=== PATIENT | male | born 1985 ===

== ENCOUNTER → 2024-12-11 09:08 | Outpatient (REF) | payer OTHER, SELFPAY | LOC: HWRCS 09:08 | PROVIDERS: ATTENDING PHYSICIAN Internal Medicine Cardiovascular Disease; FAMILY PHYSICIAN Physician Assistant | DX: R42 Dizziness and giddiness (principal); G90.9 Disorder of the autonomic nervous system, unspecified; I11.9 Hypertensive heart disease without heart failure | CPT/HCPCS: 93306 ==